=== PATIENT | female | born 1970 | race Caucasian/White ===

== ENCOUNTER 2017-11-02 12:21 | Emergency (ER) | payer MEDICARE ==
--- NOTE | 2017-11-02 12:40 | ED Physician Chart ---
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 HAS HX OF SEIZURES History of Present Illness:: She was witnessed to have a generalized tonic-clonic seizure at the [facility]. The patient is postictal at this time and unable to provide any information regarding her condition. She is accompanied by paperwork which says that she has a seizure disorder in that she is noncompliant with her medications. 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 She has had facial and head injuries from this activity in the past. ED Review of Systems - Review of Systems General/Constitutional: No fever, No chills, No weight loss, No weakness, No diaphoresis Skin: Other (minor abrasion over the bridge of the nose and over the left cheek region. No lacerations requiring suturing.) G/U: No dysuria, No frequency, No hematuria Musculoskeletal: Other (as pain in the region of the right knee with a minor abrasion over the patella. Still complains of pain in the toes on the right foot and chest pain and bilateral anterior rib pain.) ED Labs/Radiology/EKG Results - Lab Results Results: Laboratory Tests 11/02/17 12:29 POC Glucose 119 H Laboratory Tests 11/02/17 11/02/17 11/02/17 12:29 13:10 13:10 WBC 4.1 L RBC 3.89 Hgb 13.1 Hct 38.4 L MCV 98.8 MCH 33.7 H MCHC Differential 34.1 RDW 11.6 Plt Count 253 MPV 8.1 Neutrophils % 64.0 Lymphocytes % 21.4 Monocytes % 10.1 H Eosinophils % 0.6 Basophils % 3.9 H Sodium 133 L Potassium 3.5 Chloride 96 L Carbon Dioxide 22.7 Anion Gap 17.8 H BUN 10 Creatinine 1.4 H Est GFR ( Amer) 51.6 Est GFR (Non-Af Amer) 42.7 BUN/Creatinine Ratio 7.1 Glucose 89 POC Glucose 119 H Calcium 10.0 Total Bilirubin 0.4 AST 20 ALT 12 Alkaline Phosphatase 56 Total Protein 7.0 Albumin 4.7 Globulin 2.3 Albumin/Globulin Ratio 2.0 H Patient's CBC is unremarkable in that his white count is 4.1 his hemoglobin is 13.1 and platelets were in the 250 range. Electrolytes show a mild hyponatremia of 133 normal potassium level, mild hyponatremia with a sodium of 133 mild bicarbonate depression with the value of 96 elevated anion gap of 17.8 BUN of 10 and creatinine of 1.4 both within normal parameters. Mild elevation of the serum glucose at 119. The total bilirubin was within the normal range at 10.0 the AST and the ALT were both within normal parameters. Alkaline phosphatase was normal at 56 albumin was normal at 4.7 and a globulin was normal at 2.3.
[2017-11-02 13:18] LABS: % BASOPHILS 3.9 % (0.0-2.0); % EOSINOPHILS 0.6 % (0.0-5.0); % LYMPHOCYTES 21.4 % (20.0-50.0); % MONOCYTES 10.1 % (2.0-10.0); BASOPHILE ABSOLUTE 0.2 Th/cumm (0-0.2); HEMATOCRIT 38.4 % (41.0-60); HEMOGLOBIN 13.1 gm/dL (12-16); LYMPHOCYTE ABSOLUTE 0.9 Th/cmm (1.5-3.0); MEAN CELL VOLUME 98.8 fl (81-100); MEAN CORPUSCULAR HEMOGLOBIN 33.7 pg (27.0-31.0); MEAN CORPUSCULAR HGB CONC 34.1 pg (28.0-36.0); MEAN PLATELET VOLUME 8.1 fl; MONOCYTE ABSOLUTE 0.4 Th/cmm (0.3-1.0); NEUTROPHILE ABSOLUTE 2.6 Th/cmm (1.8-8.0); PLATELET COUNT 253 Th/cmm (150-400); RED BLOOD COUNT 3.89 Mil/cmm (3.80-5.10); RED CELL DISTRIBUTION WIDTH 11.6 % (11.5-20.0); WHITE BLOOD COUNT 4.1 Th/cmm (4.8-10.8)
[2017-11-02 13:31] LABS: ALBUMIN 4.7 gm/dL (3.7-5.3); ANION GAP 17.8 (7.0-16.0); BILIRUBIN,TOTAL 0.4 mg/dL (0.3-1.0); CARBON DIOXIDE 22.7 mEq/L (21.0-31.0); CREATININE - SERUM 1.4 mg/dL (0.6-1.2); GFR AFRICAN-AMERICAN 51.6 ml/min (>90); GFR NON AFRICAN-AMERICAN 42.7 ml/min; POTASSIUM SERUM 3.5 mEq/L (3.5-5.1)
--- NOTE | 2017-11-02 14:30 | Diagnostic Imaging Report ---
Head CT without intravenous contrast Indication: Trauma Comparison: None Technique: Axial images were obtained from the vertex to the skull base without IV contrast. Coronal reconstructions were made. Total DLP: 672, [id number] FINDINGS: Images of the brain obtained with contrast demonstrate an area of encephalomalacia seen along the bifrontal region lobes along the bilateral corpus callosal regions. There is no evidence of an acute hemorrhage. The Ventricles and basal cisterns are patent. No mass effect or midline shift. Postsurgical changes are seen with evidence of prior craniotomies. No evidence of a skull fracture or focal soft tissue swelling. There is mucosal thickening of the paranasal sinuses. IMPRESSION: No evidence of an acute intracranial hemorrhage. Bifrontal lobe encephalomalacia along the corpus callosal regions. There is also evidence of postsurgical changes of previous high craniotomies. Please correlate with patient's clinical findings and old exams.
--- NOTE | 2017-11-02 14:36 | Diagnostic Imaging Report ---
CT cervical spine without IV contrast HISTORY: Trauma COMPARISON: None Technique: Axial images were obtained from the skull base to the upper thoracic spine without IV contrast. Multiplanar reconstructions were made. Total DLP: 672, [id number] FINDINGS: Images of the cervical spine obtained contrast demonstrate no evidence of an acute fracture. Tiny ossicle is seen adjacent to the right C1 lateral mass possibly due to old trauma. There is 2 mm anterolisthesis of C3 on C4 and C5 on C6 likely due to facet arthropathy. Moderate to advanced multilevel discogenic and advanced multilevel facet degenerative change are seen with multilevel subchondral cysts noted including large subchondral cyst with vacuum phenomena seen at the left C5 facet. Multilevel spinal canal or foraminal encroachment are noted. Multilevel posterior disc osteophyte complexes are also noted the largest at C6/C7 measuring 3 to 4 mm causing mild to moderate spinal canal narrowing at this level. Postsurgical changes of the neck are noted with stimulator apparatus also noted. The lung apices are clear. IMPRESSION: No evidence of acute fracture. Multilevel advanced degenerative changes. 2 mm anterolisthesis of C3 on C4 and 2 mm anterolisthesis of C5 on C6 likely due to facet arthropathy. Postsurgical changes.
[2017-11-02 15:09] LABS: URINE MICROSCOPIC INDICATED? YES; URINE SOURCE RANDOM
[2017-11-02 15:15] LABS: URINE BILIRUBIN NEGATIVE (NEGATIVE); URINE BLOOD NEGATIVE (NEGATIVE); URINE GLUCOSE (UA) NEGATIVE (NEGATIVE); URINE KETONE NEGATIVE (NEGATIVE); URINE LEUKOCYTE ESTERASE NEGATIVE (NEGATIVE); URINE NITRATE NEGATIVE (NEGATIVE); URINE PH 7.5 (4.6 - 8.0); URINE PROTEIN NEGATIVE (NEGATIVE); URINE UROBILINOGEN 0.2 E.U./dL (0.2 - 1.0)
[2017-11-02 15:26] LABS: URINE CLARITY CLEAR (CLEAR); URINE COLOR YELLOW
[2017-11-02 15:29] LABS: URINE BACTERIA NONE SEEN /hpf (NONE SEEN); URINE EPITHELIAL CELLS NONE SEEN /lpf (FEW); URINE RBC NONE SEEN /hpf (0-5); URINE WBC NONE SEEN /hpf (0-5)
== END 2017-11-02 16:46 | disposition short-term general hospital (02) ==
LOC: ER 12:21
DX: G40.89 Other seizures (principal)
CPT/HCPCS: 99285; 70450; 72126; 36415; 36416; 82948; 85025; 81001; 80053; J2060